=== PATIENT | female | born 1985 | race Two or more races ===

== ENCOUNTER → 2017-05-16 | Outpatient (CLI) | payer MEDICAID ==
[2017-05-16 06:40] LABS: Basophils # (auto) 0 uL; Basophils % (auto) 0.7 % (0.0-2.0); Eosinophils # (auto) 0.1 uL; Eosinophils % (auto) 1.6 % (0.0-7.0); Hematocrit 37.8 % (36.0-46.0); Hemoglobin 12.6 g/dL (12.2-16.2); Lymphocytes # (auto) 2.3 uL; Lymphocytes % (auto) 35.1 % (10.0-50.0); Mean Corpuscular Hemoglobin 29.5 pg (28.0-32.0); Mean Corpuscular Hgb Conc. 33.2 g/dL (32.0-36.0); Monocytes # (auto) 0.5 uL; Monocytes % (auto) 7.6 % (0.0-12.0); Neutrophils # (auto) 3.6 uL; Platelet Count (auto) 269 10^3/uL (140-450); Red Blood Cells 4.25 10^6/uL (4.0-5.20); Red Cell Distribution Width 14.2 % (11.8-14.3); White Blood Cell 6.6 10^3/uL (4.4-10.8)
[2017-05-16 07:32] LABS: Alcohol, Urine < 3.0 mg/dL (0-5); Amphetamine Screen, Urine NEGATIVE (NEGATIVE); Barbiturate Scree,Urine NEGATIVE (NEGATIVE); Benzodiazephine Screen, Urine NEGATIVE (NEGATIVE); Cannabinoid Screen, Urine NEGATIVE (NEGATIVE); Cocaine Screen, Urine NEGATIVE (NEGATIVE); Opiate Scree,Urine NEGATIVE (NEGATIVE); Phencyclidine Screen, Urine NEGATIVE (NEGATIVE)
== END | disposition home or self-care (01) ==
LOC: LAB 06:30
PROVIDERS: ATTEND Specialist
DX: O99.810 Abnormal glucose complicating pregnancy (principal); Z3A.00 Weeks of gestation of pregnancy not specified
CPT/HCPCS: 36415; 80307; 82951; 83036; 85025; 87086

== ENCOUNTER 2017-06-12 14:15 | Observation (INO) | payer MEDICAID ==
[~2017-06-12] VITALS: Ht 157.5 cm; Wt 81.6 kg
[2017-06-12] MEDS ORDERED: TERBUTALINE SULFATE 1 MG/ML 1ML VIAL SC SCH (16:00)
[2017-06-12] MEDS ORDERED: ACETAMINOPHEN 325 MG TAB PO ONE (17:45)
== END 2017-06-12 16:55 | disposition home or self-care (01) | DRG 563 ==
LOC: LDRP 14:15
PROVIDERS: ADMIT Obstetrics & Gynecology; ATTEND Obstetrics & Gynecology
DX: O60.03 Preterm labor without delivery, third trimester (principal); S39.91XA Unspecified injury of abdomen, initial encounter; V89.2XXA Person injured in unspecified motor-vehicle accident, traffic, initial encounter; Y93.89 Activity, other specified; Y92.410 Unspecified street and highway as the place of occurrence of the external cause; Y99.8 Other external cause status; Z3A.31 31 weeks gestation of pregnancy
CPT/HCPCS: 59025; 76815; 81002; 96372; G0378; J3105

== ENCOUNTER → 2017-07-09 | Outpatient (CLI) | payer MEDICAID ==
[2017-07-09 10:10] LABS: Basophils # (auto) 0.1 uL; Basophils % (auto) 0.7 % (0.0-2.0); Eosinophils # (auto) 0.1 uL; Eosinophils % (auto) 0.9 % (0.0-7.0); Hematocrit 38.6 % (36.0-46.0); Lymphocytes # (auto) 2.4 uL; Mean Corpuscular Hemoglobin 29.8 pg (28.0-32.0); Mean Corpuscular Hgb Conc. 33.7 g/dL (32.0-36.0); Mean Corpuscular Volume 88.2 fL (80.0-100.0); Monocytes # (auto) 0.6 uL; Monocytes % (auto) 9.1 % (0.0-12.0); Neutrophils # (auto) 3.9 uL; Neutrophils % (auto) 55.3 % (37.0-80.0); Nucleated Red Blood Cells % 0.1 %; Platelet Count (auto) 258 10^3/uL (140-450); Red Blood Cells 4.38 10^6/uL (4.0-5.20); Red Cell Distribution Width 14.3 % (11.8-14.3); White Blood Cell 7.1 10^3/uL (4.4-10.8)
== END | disposition home or self-care (01) ==
LOC: LAB 09:44
PROVIDERS: ATTEND Specialist
DX: Z34.00 Encounter for supervision of normal first pregnancy, unspecified trimester (principal); N76.0 Acute vaginitis; Z3A.00 Weeks of gestation of pregnancy not specified
CPT/HCPCS: 36415; 85025; 87081

== ENCOUNTER 2017-08-13 08:05 | Inpatient (IN) | payer MEDICAID ==
[~2017-08-13] VITALS: Ht 157.5 cm; Wt 83.9 kg
[2017-08-13] MEDS ORDERED: PHISODERM TOP SOLN 240ML BTL TOP PRN (08:30)
[2017-08-13] MEDS ORDERED: LIDOCAINE 2% (LOCAL ANESTH.) PF 5ml SDV ID ONE (08:30)
[2017-08-13] MEDS: LACTATED RINGER'S 1,000 ML IV SCH ×2 (08:30→16:30)
[2017-08-13] MEDS ORDERED: DERMOPLAST 60ML BOTTLE TOP PRN (08:30)
[2017-08-13] MEDS ORDERED: METHYLERGONOVINE MALEATE 0.2 MG/ML AMP IM PRN (08:30)
[2017-08-13] MEDS ORDERED: WITCH HAZEL-GLYCERIN PAD TOP PRN (08:30)
[2017-08-13] MEDS ORDERED: NALBUPHINE HCL 10 MG/1ml INJECTION IV PRN (08:30)
[2017-08-13] MEDS ORDERED: LACT. RINGERS/OXYTOCIN 20UNITS 1,000 ML IV SCH ×2 (08:30→15:36)
[2017-08-13 09:22] LABS: Basophils # (auto) 0 uL; Basophils % (auto) 0.4 % (0.0-2.0); Eosinophils # (auto) 0.1 uL; Hematocrit 38.9 % (36.0-46.0); Hemoglobin 13.1 g/dL (12.2-16.2); Lymphocytes # (auto) 2.2 uL; Lymphocytes % (auto) 36.5 % (10.0-50.0); Mean Corpuscular Hemoglobin 29.9 pg (28.0-32.0); Mean Corpuscular Hgb Conc. 33.6 g/dL (32.0-36.0); Mean Corpuscular Volume 88.9 fL (80.0-100.0); Monocytes # (auto) 0.4 uL; Monocytes % (auto) 7.2 % (0.0-12.0); Neutrophils # (auto) 3.3 uL; Neutrophils % (auto) 54.9 % (37.0-80.0); Nucleated Red Blood Cells % 0.1 %; Platelet Count (auto) 226 10^3/uL (140-450); Red Blood Cells 4.38 10^6/uL (4.0-5.20); Red Cell Distribution Width 14.9 % (11.8-14.3)
[2017-08-13 09:32] LABS: Urine Bacteria NONE SEEN /hpf (None Seen); Urine Blood Negative /uL (Negative); Urine WBC 2 /hpf (0 - 5)
[2017-08-13 09:40] LABS: Albumin 2.5 g/dL (3.4-5.0); Bilirubin, Total 0.2 mg/dL (0.2-1.0); Calcium 8.4 mg/dL (8.5-10.1); Potassium 3.7 mmol/L (3.5-5.1); Total Protein 6.8 g/dL (6.4-8.2); Uric Acid 5.6 mg/dL (2.6-6.0)
[2017-08-13 09:42] LABS: INR 0.87 (0.9-1.15); Partial Thromboplastin Time 27.9 sec (23.78-33.04); Prothrombin Time 9.4 sec (9.27-12.13)
[2017-08-13] MEDS ORDERED: TERBUTALINE SULFATE 1 MG/ML 1ML VIAL SC ONE (15:45)
[2017-08-13] MEDS ORDERED: PROMETHAZINE HCL 25 MG/ML 1ML IV ONE (16:00)
[2017-08-13] MEDS ORDERED: fentaNYL W ROPIVACAINE 150 ML EPI SCH ×2 (17:15→18:15)
[2017-08-13] MEDS ORDERED: fentaNYL CITRATE 100 MCG/2 ML VL IV ONE ×2 (17:15→18:15)
[2017-08-13] MEDS ORDERED: LIDOCAINE HCL 2 %PF INJ 10ML AMP IJ ONE (17:15)
[2017-08-13] MEDS ORDERED: ePHEDrine SULFATE 50 MG/ML AMP IV ONE ×2 (17:15→18:15)
[2017-08-13] MEDS ORDERED: NALOXONE HCL 0.4 MG/ML VIAL IV ONE ×2 (17:15→18:15)
[2017-08-13] MEDS ORDERED: SODIUM CHLORIDE 0.9% 500 ML IV PRN (18:04)
[2017-08-13] MEDS ORDERED: LIDOCAINE 2% (LOCAL ANESTH.) PF 5ml SDV IJ ONE (18:15)
[2017-08-14] VITALS (8 sets, daily range): BP systolic 93–110; BP diastolic 57–74
[2017-08-14] MEDS: LACTATED RINGER'S 1,000 ML IV SCH ×3 (00:30→16:30)
[2017-08-14] MEDS ORDERED: AMPICILLIN SOD 1 GM VL ONE (02:40)
[2017-08-14] MEDS ORDERED: AMPICILLIN SOD 2GM INJ 2 GM in SODIUM CHL 0.9% 100 ML IV ONE (02:45)
[2017-08-14] MEDS ORDERED: ACETAMINOPHEN 650 MG RECT SUPP PR ONE (03:30)
[2017-08-14] MEDS ORDERED: AMPICILLIN INJ 1 GM in SODIUM CHL 0.9% 50 ML IV SCH (07:00)
[2017-08-14] MEDS ORDERED: TETRACAINE 1% INJ 2 ML VIAL IJ ONE (07:47)
[2017-08-14] MEDS ORDERED: fentaNYL CITRATE 100 MCG/2 ML VL ONE (07:53)
[2017-08-14] MEDS ORDERED: ePHEDrine SULFATE 50 MG/ML AMP ONE (08:00)
[2017-08-14] MEDS ORDERED: OXYTOCIN 10 UNIT/ML 10ML VIAL ONE (08:02)
[2017-08-14] MEDS ORDERED: PHENYLEPHRINE HCL 10 MG/ML VL ONE (08:03)
[2017-08-14] MEDS ORDERED: ceFAZolin 1GM VL ONE (08:03)
[2017-08-14] MEDS ORDERED: MORPHINE SULF(PF) 0.5MG/ML 10ML VIAL ONE (08:12)
[2017-08-14] MEDS ORDERED: MIDAZOLAM HCL 1MG/1ML-2 ML VIAL ONE (08:30)
[2017-08-14] MEDS ORDERED: LIDOCAINE HCL 2 %PF INJ 10ML AMP IJ ONE (08:37)
[2017-08-14] MEDS ORDERED: LACT. RINGERS/OXYTOCIN 20UNITS 1,000 ML IV SCH (09:06)
[2017-08-14] MEDS ORDERED: OXYTOCIN 10UNIT/ML 1ML VIAL ONE (09:11)
[2017-08-14] MEDS ORDERED: diphenhdrAMINE HCL 50 MG/1 ML VL IV PRN (09:15)
[2017-08-14] MEDS ORDERED: METOCLOPRAMIDE HCL 5MG/ml INJ 2ml VIAL IV ONE (09:15)
[2017-08-14] MEDS ORDERED: MORPHINE SULFATE 8mg/ml INJ SDV IV PRN (09:15)
[2017-08-14] MEDS ORDERED: HYDROmorphone HCL 2 MG/ML VL IV PRN ×2 (09:15→12:30)
[2017-08-14] MEDS ORDERED: ONDANSETRON HCL 4 MG/2 ML VIAL IV ONE (09:15)
[2017-08-14] MEDS ORDERED: ONDANSETRON HCL 4 MG/2 ML VIAL IV PRN ×2 (09:15)
[2017-08-14] MEDS ORDERED: KETOROLAC TROMETH 30 MG/ML 1ML VIAL IV PRN ×2 (09:15→22:00)
[2017-08-14] MEDS ORDERED: NALOXONE HCL 0.4 MG/ML VIAL IV PRN (09:15)
[2017-08-14] MEDS ORDERED: ceFAZolin 1GM/50ML 50 ML IV SCH (09:15)
[2017-08-14] MEDS ORDERED: SODIUM CHLORIDE LOCK 20 ML ONE (10:25)
[2017-08-14] MEDS ORDERED: KETOROLAC TROMETH 30 MG/ML 1ML VIAL IV SCH (12:00)
[2017-08-14] MEDS ORDERED: MORPHINE SULF INJ 2 MG/ML SYRINGE 1ML ONE (12:04)
[2017-08-14] MEDS: ceFAZolin 1GM/50ML 50 ML IV SCH (16:23)
[2017-08-15] MEDS: ceFAZolin 1GM/50ML 50 ML IV SCH ×2 (00:12→08:20)
[2017-08-15] MEDS: LACTATED RINGER'S 1,000 ML IV SCH (00:13)
[2017-08-15 03:00] VITALS: BP 108/63
[2017-08-15 06:30] VITALS: BP 87/52
[2017-08-15 07:05] LABS: Basophils # (auto) 0 uL; Basophils % (auto) 0.1 % (0.0-2.0); Eosinophils # (auto) 0.1 uL; Eosinophils % (auto) 0.4 % (0.0-7.0); Hematocrit 27.9 % (36.0-46.0); Hemoglobin 9.4 g/dL (12.2-16.2); Lymphocytes # (auto) 1.8 uL; Lymphocytes % (auto) 13.1 % (10.0-50.0); Mean Corpuscular Hemoglobin 30.8 pg (28.0-32.0); Mean Corpuscular Hgb Conc. 33.8 g/dL (32.0-36.0); Mean Corpuscular Volume 91.1 fL (80.0-100.0); Monocytes # (auto) 0.6 uL; Monocytes % (auto) 4.1 % (0.0-12.0); Neutrophils # (auto) 11.3 uL; Neutrophils % (auto) 82.3 % (37.0-80.0); Platelet Count (auto) 174 10^3/uL (140-450); Red Blood Cells 3.06 10^6/uL (4.0-5.20); Red Cell Distribution Width 14.8 % (11.8-14.3); White Blood Cell 13.7 10^3/uL (4.4-10.8)
[2017-08-15] MEDS ORDERED: BISACODYL 10 MG RECT SUPP PR PRN (08:00)
[2017-08-15] MEDS ORDERED: IBUPROFEN 800 MG TAB PO ONE (08:20)
[2017-08-15] MEDS: IBUPROFEN 800 MG TAB PO PRN ×2 (08:20→16:08)
[2017-08-15] MEDS: DOCUSATE CALCIUM 240 MG CAP PO SCH (09:40)
[2017-08-15] MEDS: DOCUSATE SOD 100 MG CAP PO SCH ×2 (09:40→22:30)
[2017-08-15] MEDS: FERROUS SULFATE 325 MG TAB PO SCH ×2 (09:40→22:30)
[2017-08-15 11:00] VITALS: BP 103/64
[2017-08-15 11:26] LABS: RPR Non Reactive (Non Reactive)
[2017-08-15] MEDS: HYDROcodone-ACET 5/325MG TAB PO PRN ×2 (11:28→19:30)
[2017-08-15] MEDS: SIMETHICONE 80 MG CHEWABLE TABLET PO SCH ×3 (11:50→22:30)
[2017-08-15 15:00] VITALS: BP 96/60
[2017-08-15 23:00] VITALS: BP 90/56
[2017-08-16] MEDS: IBUPROFEN 800 MG TAB PO PRN ×2 (00:33→13:30)
[2017-08-16] MEDS: HYDROcodone-ACET 5/325MG TAB PO PRN ×3 (01:35→15:08)
[2017-08-16 03:00] VITALS: BP 86/53
[2017-08-16] MEDS: SIMETHICONE 80 MG CHEWABLE TABLET PO SCH ×3 (05:56→23:05)
[2017-08-16 07:00] VITALS: BP 102/71
[2017-08-16] MEDS: DOCUSATE SOD 100 MG CAP PO SCH ×2 (09:53→23:05)
[2017-08-16] MEDS: DOCUSATE CALCIUM 240 MG CAP PO SCH (09:53)
[2017-08-16] MEDS: FERROUS SULFATE 325 MG TAB PO SCH ×2 (09:53→23:05)
[2017-08-16 10:43] VITALS: BP 107/76
[2017-08-16 15:00] VITALS: BP 116/73
[2017-08-16 19:20] VITALS: BP 123/85
[2017-08-16 23:00] VITALS: BP 112/73
[2017-08-17 03:00] VITALS: BP 111/79
[2017-08-17] MEDS: SIMETHICONE 80 MG CHEWABLE TABLET PO SCH (06:40)
[2017-08-17 07:00] VITALS: BP 104/64
[2017-08-17] MEDS: IBUPROFEN 800 MG TAB PO PRN (07:15)
[2017-08-17] MEDS: DOCUSATE CALCIUM 240 MG CAP PO SCH (10:00)
[2017-08-17] MEDS: FERROUS SULFATE 325 MG TAB PO SCH (10:00)
[2017-08-17] MEDS: DOCUSATE SOD 100 MG CAP PO SCH (10:00)
== END 2017-08-17 10:05 | disposition home or self-care (01) | DRG 540 ==
LOC: LDRP 08:05
PROVIDERS: ADMIT Specialist; ATTEND Specialist
PROC: 10D00Z1 Extraction of Products of Conception, Low, Open Approach (ICD-10-PCS; principal; 2017-08-14 07:47)
DX: O76 Abnormality in fetal heart rate and rhythm complicating labor and delivery (principal); O41.03X0 Oligohydramnios, third trimester, not applicable or unspecified; D25.9 Leiomyoma of uterus, unspecified; O34.13 Maternal care for benign tumor of corpus uteri, third trimester; O77.0 Labor and delivery complicated by meconium in amniotic fluid; O62.1 Secondary uterine inertia; Z3A.40 40 weeks gestation of pregnancy; Z37.0 Single live birth
CPT/HCPCS: 36415; 51702; 59025; 62282; 80053; 81001; 84550; 85025; 85610; 85730; 86592; 86850; 86900; 86901; 94760; 94762; 96361; 96365; 96366; 96374; 96375; J0690; J1885; J2250; J2590; J3010

== ENCOUNTER 2024-11-02 13:21 | Emergency (ER) | payer MEDICAID ==
[~2024-11-02] VITALS: Ht 157.5 cm; Wt 69.9 kg
[2024-11-02 13:22] VITALS: BP 138/71; PULSE 113; RESP 18; TEMP 98.1; O2SAT 99
--- NOTE | 2024-11-02 14:03 | ED.PDOC ---
History of Present Illness(SKN HPI Comments 39 year old female with no past medical history presents to the ED with a chief complaint of LT eye laceration onset 1 day. Patient states she was running, fell, landed on LT side face, began experiencing bleeding from under LT eye, applied pressure and gauze. 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 She is currently concerned about cosmetic outcome No other symptoms or modifying factors present at this time. Denies vision changes Denies hearing changes, nausea, vomiting denies headache, LOC Denies dizziness Chief Complaint: Fall Injury Time Seen by MD: 13:50 History of Present Illness: Nurses Notes, Medications, Allergies Allergies: Coded Allergies: NO KNOWN ALLERGIES (Unverified , 08/13/17) Home Meds Active Scripts Mupirocin Calcium (Topical) (MUPIROCIN) 2 % Cre, 1 APPLIC EX BID for 7 Days, #30 GRAMS 0 Refills Prov:ANUSHA POSADA NP 11/02/24 Sulfamethoxazole W/Trimethopri (Bactrim Ds Tablet) 1 Tab Tb, 1 TAB PO BID for 7 Days, #14 TAB 0 Refills Prov:ANUSHA POSADA NP 11/02/24 Information Source: Patient Mode of Arrival: Ambulatory Severity: Moderate Timing: Days Duration: Since onset Prehospital treatment: None Location: Eyes Mechanism: Fall Past Medical History PAST MEDICAL HISTORY: Denies Surgical History: Denies all surgeries GEOLOGY SCIENTIST History: No Pertinent GEOLOGY SCIENTIST History Family History Family History: Reviewed,noncontributory to illness, No family hx of Cancer, No family hx of DM, No family hx of Heart vinay, No family hx of HTN, No family hx ofKidney vinay, No family hx of Liver vinay, No family hx of Lung vinay, No family hx of Stroke Social History Smoker: Non-Smoker Alcohol: Denies ETOH Use Drugs: Denies Drug Use Lives In: Home All Other Systems: Reviewed and Negative (as per HPI) Physical Exam General Appearance: Normal HEENT: Normal ENT Inspection, Pharynx Normal, TMs Normal Neck: Full Range of Motion, Non-Tender, Normal, Normal Inspection Respiratory: Chest Non-Tender, Lungs Clear, No Accessory Muscle Use, No Respiratory Distress, Normal Breath Sounds Cardiovascular: No Edema, No JVD, No Murmur, No Gallop, Normal Peripheral Pulses, Regular Rate/Rhythm Breast Exam: Deferred Gastrointestinal: No Organomegaly, Non Tender, No Pulsatile Mass, Normal Bowel Sounds, Soft Genitalia: Deferred Pelvic: Deferred Rectal: Deferred Extremities: No calf tenderness, Normal capillary refill, Normal inspection, Normal range of motion, Non-tender, No pedal edema Musculoskeletal : Apperance: Normal Neurologic: Alert, station attendant II-XII nml as Tested, No Motor Deficits, Normal Affect, Normal Mood, No Sensory Deficits Cerebellar Function: Normal Reflexes: Normal Skin: Dry, Lacerations (3 cm laceration with glue, scabbing noted. No active bleeding) Lymphatic: No Adenopathy Was a procedure done? Was a procedure done?: No Differential Diagnosis (INTG) Differential Diagnosis: Abrasion X-Ray, Labs, Meds, VS Vital Signs Date Time Temp Pulse Resp B/P (MAP) Pulse Ox O2 Delivery O2 Flow Rate FiO2 11/02/24 13:22 98.1 113 18 138/71 99 98.1 [place] [address] Ph: [phone] DIAGNOSTIC IMAGING Diagnostic Imaging Report : [id number] Signed PATIENT: CINDY COHENT: [id number] UNIT: [id number] : 1985 LOC: ER ROOM / BED: / AGE / SEX: 39 / F ADM STATUS: REG ER SERVICE [id number] ORDERING PHYSICIAN: ANUSHA POSADA NP PROCEDURE(s): FAC2C - MAXILLOFACIAL WITHOUT REASON: r/o fracture to the L orbital ORDER NUMBER(s): [id number], ACCESSION NUMBER(s): [id number] HISTORY: r/o fracture to the L orbital TECHNIQUE: Nonenhanced axial images through the facial bones with coronal and sagittal MPR. Radiation optimization: All CT scans at this facility use at least one of these dose optimization techniques: automated exposure control mA and/or kV adjustment per patient size (includes targeted exams where dose is matched to clinical indication) or iterative reconstruction. Radiation Dose Information: CT Dose: CTDI volume is 66.97 mGy. Dose-length product is 1477.25 mGy*cm COMPARISON: None FINDINGS: No acute displaced fractures are identified about the facial bones. The optic globes are symmetric. There is radiopaque density in the subcutaneous fat of the left inferolateral orbit measuring 6 mm (images 50-51, series 2). There is a mucous retention cyst in the right maxillary sinus. There is mild mucosal thickening of the left maxillary and left sphenoid sinuses. The other paranasal sinuses are clear. The nasal septum is midline. No tika bullosa. There are bilateral Namita cells. The mastoid air cells and middle ear spaces are clear. There is palatine and lingual tonsillar hypertrophy without significant airway narrowing. There is a dental cavity involving the left maxillary 1st molar tooth. There is lucency about the root of the most posterior left mandibular tooth. There is cervical degenerative disc disease with lppx-yv-vaexbjkx spinal canal stenosis at the C5-C6 level (image 64, series 602). IMPRESSION: 1. No acute facial bone fracture. 2. 6 mm radiopaque foreign body in the subcutaneous fat of the left inferolateral orbit. It is uncertain if this is chronic for the patient or related to the recent trauma. 3. Mild paranasal sinus disease. 4. Dental cavity involving the left maxillary 1st molar tooth and periapical pathology of the most posterior left mandibular molar tooth. Recommend outpatient dental consultation. 5. [place] and lingual tonsillar hypertrophy. 6. Cervical degenerative disc disease with uyrh-ak-itoeqcfk spinal canal stenosis at C5-C6. Consider follow-up noncontrast MRI of the cervical spine on an outpatient basis as there may be mass effect on the cervical spinal cord at that level. ATED BY: FERN ESCOBAR MD DICTATED DATE/TIME: 11/02/241418 SIGNED BY: FERN ESCOBAR MD SIGNED DATE/TIME: 11/02/241418 CC: X-Ray, Labs, Meds, VS Comment 39 year old female with no past medical history presents to the ED with a chief complaint of LT eye laceration onset 1 day. Patient arrives alert and oriented, ABC's intact, afebrile, vital signs stable, saturating well in room air Diagnostic imaging ordered by me and results interpreted by radiology : CT MAXILLOFACIAL WO CONTRAST: IMPRESSION: 1. No acute facial bone fracture. 2. 6 mm radiopaque foreign body in the subcutaneous fat of the left inferolateral orbit. It is uncertain if this is chronic for the patient or related to the recent trauma. 3. Mild paranasal sinus disease. 4. Dental cavity involving the left maxillary 1st molar tooth and periapical pathology of the most posterior left mandibular molar tooth. Recommend outpatient dental consultation. 5. [place] and lingual tonsillar hypertrophy. 6. Cervical degenerative disc disease with vzjd-su-iiiutpso spinal canal stenosis at C5-C6. Consider follow- up noncontrast MRI of the cervical spine on an outpatient basis as there may be mass effect on the cervical spinal cord at that level. Additional MDM Review of External, Non-ED records: External records reviewed. Discussion with independent historian (EMS, family) history obtained from the patient/parents (if applicable) at bedside Chronic conditions affecting care: None Social determinants of health affecting care: None Consideration of admission (observation or admission): I considered escalation of care to admission for this patient, however given the reassuring workup, the patient is safe for outpatient management. On reevaluation, patient had symptomatic improvement. Patient is stable for discharge at this time. External notes reviewed. Test results and diagnostic imaging interpreted. All diagnostic findings, discharge care, education and instructions provided Follow-up with PCP in 2 to 3 days Patient verbalized understanding and agreed to treatment plan Vital signs stable, afebrile, no acute distress noted Patient ambulatory with strong steady gait Advised to return precautions for any new or worsening symptoms, return to ER immediately for re-evaluation Patient is aware that the purpose of this visit was for an acute medical emergency requiring emergent stabilization. Chronic conditions, including malignancies have not been ruled out. Patient is instructed to follow up with PCP as directed and discharge instructions for continued care and workup. If unable to arrange follow-up, patient is to return to the emergency department for reassessment. Patient (parent or legal guardian if applicable) was given verbal and written discharge instructions and acknowledges understanding. Time of 1ST Reevaluation: 14:20 Reevaluation 1ST: Improved Patient Education/Counseling: Diagnosis, Treatment Family Education/Counseling: No Family Present SEPSIS Sepsis Screen Date sepsis recognized/suspect: Nov 02, 2024 Time Sepsis recognized/suspect: 1324 Recent Procedure: No On Antibiotic Therapy: No Respiratory Rate >20: No Heart Rate >90: No Temp<36 C (96.8 F) or >38.3 C: No SBP <90 or MAP <65 mmHG: No New Acute Mental Status Change: No Is the patient on CPAP, BIPAP,: No Physician Orders Maxillofacial Without (11/02/24 13:40) Vital Signs Date Time Temp Pulse Resp B/P (MAP) Pulse Ox O2 Delivery O2 Flow Rate FiO2 11/02/24 13:22 98.1 113 18 138/71 99 98.1 Departure 1 Departure Time of Disposition: 14:32 Impression: Primary Impression: Fall Qualified Codes: W19.XXXA - Unspecified fall, initial encounter Additional Impressions: Dental caries Cervical disc disease Disposition: HOME / SELF CARE / HOMELESS Condition: Stable e-Prescriptions Mupirocin Calcium (Topical) (MUPIROCIN) 2 % Cre 1 APPLIC EX BID for 7 Days, #30 GRAMS 0 Refills Prov: ANUSHA POSADA NP 11/02/24 Sulfamethoxazole W/Trimethopri (Bactrim Ds Tablet) 1 Tab Tb 1 TAB PO BID for 7 Days, #14 TAB 0 Refills Prov: ANUSHA POSADA NP 11/02/24 Critical Care Note Critical Care Time?: No Stability Stability form required: No Heart Score Heart Score: Heart Score Response (Comments) Value History N/A 0 EKG N/A 0 Age N/A 0 Risk Factors N/A 0 Troponin N/A 0 Total 0 I personally scribed for ANUSHA POSADA NP ([email or web address]) on 11/02/24 at 14:02. Electronically submitted by Hannah Christensen ([email or web address]). I personally scribed for ANUSHA POSADA NP ([email or web address]) on 11/02/24 at 14:38. Electronically submitted by Hannah Christensen ([email or web address]). ANUSHA POSADA DISPATCHER CLERK Nov 02, 2024 14:02
--- NOTE | 2024-11-02 14:21 | DVH ---
HISTORY: r/o fracture to the L orbital TECHNIQUE: Nonenhanced axial images through the facial bones with coronal and sagittal MPR. Radiation optimization: All CT scans at this facility use at least one of these dose optimization techniques: automated exposure control mA and/or kV adjustment per patient size (includes targeted exams where d ose is matched to clinical indication) or iterative reconstruction. Radiation Dose Information: CT D ose: CTDI volume is 66.97 mGy. Dose-length product is 1477.25 mGy*cm COMPARISON: None FINDINGS: No acute displaced fractures are identified about the facial bones. The optic globes are symmetric. There is radiopaque density in the subcutaneous fat of the left inferolateral orbit measuring 6 mm (i mages 50-51, series 2). There is a mucous retention cyst in the right maxillary sinus. There is mild mucosal thickening of the left maxillary and left sphenoid sinuses. The other paranasal sinuses are clear. The nasal septum is midline. No tika bullosa. There are bilateral Namita cells. The mastoi d air cells and middle ear spaces are clear. There is palatine and lingual tonsillar hypertrophy with out significant airway narrowing. There is a dental cavity involving the left maxillary 1st molar too th. There is lucency about the root of the most posterior left mandibular tooth. There is cervical de generative disc disease with zmky-gn-rkiltkht spinal canal stenosis at the C5-C6 level (image 64, ser ies 602). IMPRESSION: 1. No acute facial bone fracture. 2. 6 mm radiopaque foreign body in the subcutaneous fat of the left inferolateral orbit. It is uncer tain if this is chronic for the patient or related to the recent trauma. 3. Mild paranasal sinus disease. 4. Dental cavity involving the left maxillary 1st molar tooth and periapical pathology of the most po sterior left mandibular molar tooth. Recommend outpatient dental consultation. 5. [place] and lingual tonsillar hypertrophy. 6. Cervical degenerative disc disease with asro-zz-ributeaq spinal canal stenosis at C5-C6. Consider follow-up noncontrast MRI of the cervical spine on an outpatient basis as there may be mass effect o n the cervical spinal cord at that level.
[2024-11-02] MEDS ORDERED: BACDST PO (14:34)
[2024-11-02] MEDS ORDERED: MUPI2CRE17 EX (14:34)
== END 2024-11-02 14:43 | disposition home or self-care (01) ==
LOC: ER 13:21
DX: M50.90 Cervical disc disorder, unspecified, unspecified cervical region (principal); K02.9 Dental caries, unspecified; R42 Dizziness and giddiness; W19.XXXA Unspecified fall, initial encounter; Y93.89 Activity, other specified; Y92.89 Other specified places as the place of occurrence of the external cause; Y99.8 Other external cause status
CPT/HCPCS: 70486